=== PATIENT | female | born 1990 | race African-American/Black ===

== ENCOUNTER 2018-01-02 15:11 | Emergency (ER) | payer MEDICAID, OTHER ==
[2018-01-02 15:21] VITALS: BP 104/62
[2018-01-02 15:42] LABS: Basophils # (auto) 0 uL; Basophils % (auto) 0.4 % (0.0-2.0); Eosinophils # (auto) 0 uL; Eosinophils % (auto) 0.5 % (0.0-7.0); Hemoglobin 14.5 g/dL (12.2-16.2); Lymphocytes # (auto) 2.7 uL; Mean Corpuscular Hemoglobin 31.2 pg (28.0-32.0); Mean Corpuscular Hgb Conc. 33.6 g/dL (32.0-36.0); Monocytes % (auto) 9.7 % (0.0-12.0); Neutrophils # (auto) 6.6 uL; Neutrophils % (auto) 63.4 % (37.0-80.0); Nucleated Red Blood Cells % 0.1 %; Platelet Count (auto) 299 10^3/uL (140-450); Red Blood Cells 4.63 10^6/uL (4.0-5.20); Red Cell Distribution Width 13.1 % (11.8-14.3); White Blood Cell 10.3 10^3/uL (4.4-10.8)
[2018-01-02 15:57] LABS: Albumin 3.8 g/dL (3.4-5.0); BUN/Creatinine Ratio 8.3; Calcium 8.4 mg/dL (8.5-10.1)
[2018-01-02 15:59] LABS: Bilirubin, Total 0.7 mg/dL (0.2-1.0); Total Protein 7.8 g/dL (6.4-8.2)
== END 2018-01-02 16:39 | disposition left against medical advice (07) ==
LOC: EDBD 15:11 → ER 15:22
DX: R10.9 Unspecified abdominal pain (principal)
CPT/HCPCS: 36415; 80053; 84702; 85025

== ENCOUNTER 2021-07-30 19:17 | Observation (INO) | payer MEDICAID ==
[~2021-07-30 19:17] MED LIST: PREN-96 PO
[2021-07-30] MEDS ORDERED: DOCU50LI8 PO (19:39)
[2021-07-30] MEDS ORDERED: DOCUSATE SOD 100 MG CAP PO ONE (20:15)
== END 2021-07-30 21:10 | disposition home or self-care (01) ==
LOC: LDRP 19:17
PROVIDERS: ADMIT Obstetrics & Gynecology; ATTEND Obstetrics & Gynecology
DX: O26.893 Other specified pregnancy related conditions, third trimester (principal); K59.00 Constipation, unspecified; E86.0 Dehydration; R11.0 Nausea; R10.9 Unspecified abdominal pain; Z3A.31 31 weeks gestation of pregnancy
CPT/HCPCS: 59025; 81002; 94760; G0378

== ENCOUNTER 2022-04-25 07:12 | Emergency (ER) | payer MEDICAID ==
[~2022-04-25] VITALS: Ht 175.3 cm; Wt 84.0 kg
[~2022-04-25 07:12] MED LIST changes: +DOCU50LI8 PO
[2022-04-25 08:15] LABS: Basophils # (auto) 0 10 ^3/uL (0-0.2); Basophils % (auto) 0.4 % (0.0-2.0); Eosinophils # (auto) 0 10 ^3/uL (0-0.8); Hematocrit 41.9 % (36.0-46.0); Lymphocytes # (auto) 1.5 10 ^3/uL (0.4-5.4); Lymphocytes % (auto) 12.3 % (10.0-50.0); Mean Corpuscular Hemoglobin 30.1 pg (28.0-32.0); Mean Corpuscular Hgb Conc. 33.4 g/dL (32.0-36.0); Mean Corpuscular Volume 90.1 fL (80.0-100.0); Monocytes # (auto) 0.5 10 ^3/uL (0-1.3); Monocytes % (auto) 3.8 % (0.0-12.0); Neutrophils # (auto) 10.1 10 ^3/uL (1.6-8.6); Neutrophils % (auto) 83.5 % (37.0-80.0); Red Blood Cells 4.64 10^6/uL (4.0-5.20); Red Cell Distribution Width 15.3 % (11.8-14.3); White Blood Cell 12.1 10^3/uL (4.4-10.8)
[2022-04-25] MEDS ORDERED: MORPHINE SULFATE 4 MG/ML SYR/VIAL IV ONE (08:30)
[2022-04-25] MEDS ORDERED: ONDANSETRON HCL 4 MG/2 ML VIAL IV ONE (08:30)
[2022-04-25] MEDS ORDERED: SODIUM CHLORIDE 0.9% 1,000 ML IV ONE (08:30)
[2022-04-25 08:42] LABS: Urine Bacteria FEW /hpf (None Seen); Urine Blood Negative /uL (Negative); Urine Hyaline Cast FEW /lpf (0 - 2); Urine Mucus FEW (None Seen); Urine Specific Gravity 1.042 (1.001-1.035); Urine WBC 4 /hpf (0 - 5)
[2022-04-25 09:03] LABS: Albumin 4.1 g/dL (3.4-5.0); Bilirubin, Total 0.2 mg/dL (0.2-1.0); Potassium 3.1 mmol/L (3.5-5.1)
[2022-04-25] MEDS ORDERED: cefTRIAXone 1GM/50ML D5W 50 ML IV ONE (09:15)
[2022-04-25] MEDS ORDERED: HYDROmorphone HCL 2 MG/ML VL/or syr IV ONE (09:30)
[2022-04-25] MEDS ORDERED: CEPH-510 PO (11:25)
[2022-04-25] MEDS ORDERED: ONDA-144 PO (11:25)
[2022-04-25 12:00] VITALS: BP 141/81
[2022-04-26] MEDS ORDERED: ONDA-144 PO (13:36)
[2022-04-26] MEDS ORDERED: PANT40TA2 PO (13:36)
== END 2022-04-25 12:10 | disposition home or self-care (01) ==
LOC: EDBD 07:12 → ER 07:12 → EEVIPCON 07:12 → ER 12:10
DX: R10.84 Generalized abdominal pain (principal); R11.2 Nausea with vomiting, unspecified
CPT/HCPCS: 36415; 74176; 80053; 81001; 81025; 83690; 85025; 96361; 96365; 96375; 99285; J0696; J1170; J2270; J2405; J7030

== ENCOUNTER 2022-04-26 10:58 | Emergency (ER) | payer MEDICAID ==
[~2022-04-26] VITALS: Ht 172.7 cm; Wt 118.0 kg
[~2022-04-26 10:58] MED LIST changes: +CEPH-510 PO; +ONDA-144 PO
[2022-04-26] MEDS ORDERED: MORPHINE SULFATE 4 MG/ML SYR/VIAL IV ONE (11:15)
[2022-04-26] MEDS ORDERED: PROCHLORPERAZINE EDISYLATE 5 MG/ML 2ML VIAL IV ONE (11:15)
[2022-04-26] MEDS ORDERED: PANTOPRAZOLE 40 MG/10 ML VIAL INJ IV ONE (11:15)
[2022-04-26] MEDS ORDERED: SODIUM CHLORIDE 0.9% 1,000 ML IVB ONE (11:15)
[2022-04-26 11:49] LABS: Basophils # (auto) 0 10 ^3/uL (0-0.2); Basophils % (auto) 0.4 % (0.0-2.0); Eosinophils # (auto) 0 10 ^3/uL (0-0.8); Eosinophils % (auto) 0.3 % (0.0-7.0); Hematocrit 41.4 % (36.0-46.0); Hemoglobin 13.9 g/dL (12.2-16.2); Lymphocytes # (auto) 1.7 10 ^3/uL (0.4-5.4); Mean Corpuscular Hemoglobin 30.4 pg (28.0-32.0); Mean Corpuscular Hgb Conc. 33.5 g/dL (32.0-36.0); Mean Corpuscular Volume 90.6 fL (80.0-100.0); Monocytes # (auto) 0.4 10 ^3/uL (0-1.3); Monocytes % (auto) 4.9 % (0.0-12.0); Neutrophils # (auto) 6.5 10 ^3/uL (1.6-8.6); Neutrophils % (auto) 74.4 % (37.0-80.0); Nucleated Red Blood Cells % 0.1 %; Red Blood Cells 4.56 10^6/uL (4.0-5.20); Red Cell Distribution Width 15.3 % (11.8-14.3); White Blood Cell 8.7 10^3/uL (4.4-10.8)
[2022-04-26 12:09] LABS: Albumin 3.9 g/dL (3.4-5.0); Potassium 3.4 mmol/L (3.5-5.1)
[2022-04-26 12:12] LABS: BUN/Creatinine Ratio 8.8
[2022-04-26 12:14] LABS: Bilirubin, Total 0.4 mg/dL (0.2-1.0); Total Protein 7.8 g/dL (6.4-8.2)
[2022-04-26] MEDS ORDERED: PANT40TA2 PO (13:36)
[2022-04-26] MEDS ORDERED: ONDA-144 PO (13:36)
[2022-04-26] MEDS ORDERED: HYDROmorphone HCL 2 MG/ML VL/or syr IV ONE (14:00)
[2022-04-26 14:45] VITALS: BP 122/68
[2022-04-27] MEDS ORDERED: LACT10SO3 PO (15:57)
== END 2022-04-26 14:48 | disposition home or self-care (01) ==
LOC: EDBD 10:58 → ER 10:58
DX: F12.188 Cannabis abuse with other cannabis-induced disorder (principal)
CPT/HCPCS: 36415; 76705; 80053; 83690; 85025; 96361; 96374; 96375; 99285; C9113; J0780; J2270; J7030

== ENCOUNTER 2022-04-27 09:22 | Emergency (ER) | payer MEDICAID ==
[~2022-04-27] VITALS: Ht 172.7 cm; Wt 118.1 kg
[~2022-04-27 09:22] MED LIST changes: +PANT40TA2 PO
[2022-04-27 13:44] VITALS: BP 134/69
[2022-04-27] MEDS ORDERED: DICYCLOMINE HCL 10 MG CAP PO ONE (14:30)
[2022-04-27 15:39] LABS: Urine Bacteria NONE SEEN /hpf (None Seen); Urine Blood Negative /uL (Negative); Urine Mucus MANY (None Seen); Urine Specific Gravity 1.034 (1.001-1.035); Urine WBC 3 /hpf (0 - 5)
[2022-04-27] MEDS ORDERED: LACT10SO3 PO (15:57)
== END 2022-04-27 16:00 | disposition home or self-care (01) ==
LOC: EEVIPCON 09:22 → ER 09:22
DX: R10.84 Generalized abdominal pain (principal); K59.00 Constipation, unspecified; Z79.899 Other long term (current) drug therapy
CPT/HCPCS: 74018; 81001; 99284; J0500

== ENCOUNTER 2022-10-25 12:10 | Emergency (ER) | payer MEDICAID ==
[~2022-10-25] VITALS: Ht 170.2 cm; Wt 119.6 kg
[~2022-10-25 12:10] MED LIST changes: +LACT10SO3 PO
[2022-10-25 12:45] VITALS: BP 128/70; PULSE 80; RESP 18; O2SAT 99
[2022-10-25] MEDS ORDERED: SODIUM CHLORIDE 0.9% 1,000 ML IVB ONE (13:15)
[2022-10-25] MEDS ORDERED: PROCHLORPERAZINE EDISYLATE 5 MG/ML 2ML VIAL IV ONE (13:15)
[2022-10-25] MEDS ORDERED: PANTOPRAZOLE 40 MG/10 ML VIAL INJ IV ONE (13:15)
[2022-10-25 13:38] LABS: Urine Bacteria FEW /hpf (None Seen); Urine Color Light yellow (Yellow); Urine Mucus FEW (None Seen); Urine WBC 1 /hpf (0 - 5)
[2022-10-25 13:39] LABS: Urine Blood Negative /uL (Negative); Urine Protein, UAD Negative (Negative); Urine Specific Gravity 1.032 (1.001-1.035); Urine Urobilinogen Normal (Negative)
[2022-10-25 13:44] LABS: Basophils # (auto) 0 10 ^3/uL (0-0.2); Basophils % (auto) 0.1 % (0.0-2.0); Eosinophils # (auto) 0 10 ^3/uL (0-0.8); Eosinophils % (auto) 0.1 % (0.0-7.0); Hemoglobin 13.9 g/dL (12.2-16.2); Lymphocytes % (auto) 9.8 % (10.0-50.0); Mean Corpuscular Hemoglobin 30.6 pg (28.0-32.0); Mean Corpuscular Hgb Conc. 33.1 g/dL (32.0-36.0); Mean Corpuscular Volume 92.6 fL (80.0-100.0); Monocytes # (auto) 0.5 10 ^3/uL (0-1.3); Neutrophils # (auto) 8.8 10 ^3/uL (1.6-8.6); Nucleated Red Blood Cells % 0.1 %; Red Blood Cells 4.54 10^6/uL (4.0-5.20); Red Cell Distribution Width 14.1 % (11.8-14.3); White Blood Cell 10.3 10^3/uL (4.4-10.8)
[2022-10-25 14:03] LABS: Albumin 4.7 g/dL (3.2-4.8); Alkaline Phosphatase 52 U/L (46-116); Anion Gap 8.4 (5-15); Aspartate Aminotransferase 11 U/L (13-40); BUN/Creatinine Ratio 8.9 (10.0-20.0); Bilirubin, Total 0.4 mg/dL (0.2-1.0); Blood Urea Nitrogen 8 mg/dL (9-23); Calcium 9.4 mg/dL (8.5-10.1); Carbon Dioxide 23.6 mmol/L (20-30); Chloride 105 mmol/L (98-107); Glucose 125 mg/dL (74-106); Potassium 4.1 mmol/L (3.5-5.1); Sodium 137 mmol/L (136-145); Total Protein 7.8 g/dL (5.7-8.2)
[2022-10-25 14:06] LABS: Alanine Aminotransferase < 9 U/L (7-40)
== END 2022-10-25 14:34 | disposition left against medical advice (07) ==
LOC: EEVIPCON 12:10 → ER 12:10
DX: O21.0 Mild hyperemesis gravidarum (principal); R10.2 Pelvic and perineal pain; Z3A.01 Less than 8 weeks gestation of pregnancy
CPT/HCPCS: 36415; 80053; 81001; 81025; 84702; 85025; 96361; 96374; 96375; 99284; C9113; J0780; J7030

== ENCOUNTER 2022-10-26 23:51 | Emergency (ER) | payer MEDICAID ==
[~2022-10-26] VITALS: Ht 172.7 cm; Wt 119.0 kg
[2022-10-27 00:11] VITALS: BP 135/71; PULSE 85; RESP 16; O2SAT 99
[2022-10-27 00:55] LABS: Basophils # (auto) 0 10 ^3/uL (0-0.2); Basophils % (auto) 0.4 % (0.0-2.0); Eosinophils # (auto) 0.1 10 ^3/uL (0-0.8); Eosinophils % (auto) 1.1 % (0.0-7.0); Hematocrit 39.2 % (36.0-46.0); Lymphocytes # (auto) 2.4 10 ^3/uL (0.4-5.4); Lymphocytes % (auto) 33.9 % (10.0-50.0); Mean Corpuscular Hemoglobin 30.5 pg (28.0-32.0); Mean Corpuscular Hgb Conc. 33.1 g/dL (32.0-36.0); Mean Corpuscular Volume 92.3 fL (80.0-100.0); Monocytes # (auto) 0.6 10 ^3/uL (0-1.3); Neutrophils % (auto) 55.6 % (37.0-80.0); Red Blood Cells 4.25 10^6/uL (4.0-5.20); Red Cell Distribution Width 14.3 % (11.8-14.3); White Blood Cell 7.2 10^3/uL (4.4-10.8)
[2022-10-27 01:06] LABS: Urine Bacteria MANY /hpf (None Seen); Urine Blood Negative /uL (Negative); Urine Clarity HAZY (Clear); Urine Color Yellow (Yellow); Urine Hyaline Cast FEW /lpf (0 - 2); Urine Mucus FEW (None Seen); Urine Protein, UAD TRACE (Negative); Urine Specific Gravity 1.033 (1.001-1.035); Urine WBC 18 /hpf (0 - 5)
[2022-10-27 01:16] LABS: Alanine Aminotransferase 10 U/L (7-40); Albumin 4.4 g/dL (3.2-4.8); Alkaline Phosphatase 50 U/L (46-116); Anion Gap 5.5 (5-15); Aspartate Aminotransferase 16 U/L (13-40); BUN/Creatinine Ratio 7.9 (10.0-20.0); Bilirubin, Total 0.3 mg/dL (0.2-1.0); Blood Urea Nitrogen 7 mg/dL (9-23); Calcium 8.9 mg/dL (8.7-10.4); Carbon Dioxide 25.5 mmol/L (20-30); Chloride 105 mmol/L (98-107); Glucose 94 mg/dL (74-106); Potassium 3.5 mmol/L (3.5-5.1); Sodium 136 mmol/L (136-145); Total Protein 7.2 g/dL (5.7-8.2)
== END 2022-10-27 03:15 | disposition left against medical advice (07) ==
LOC: ER 23:51 → EEVIPCON 23:51 → ER 23:55
DX: O21.9 Vomiting of pregnancy, unspecified (principal); R10.2 Pelvic and perineal pain; O26.891 Other specified pregnancy related conditions, first trimester; R30.0 Dysuria; Z3A.01 Less than 8 weeks gestation of pregnancy; Z53.21 Procedure and treatment not carried out due to patient leaving prior to being seen by health care provider
CPT/HCPCS: 36415; 76801; 76817; 80053; 81001; 81025; 84702; 85025; 86900; 86901

== ENCOUNTER 2022-10-29 19:28 | Emergency (ER) | payer MEDICAID ==
[~2022-10-29] VITALS: Ht 172.7 cm; Wt 117.0 kg
[2022-10-29 20:15] LABS: Urine Bacteria FEW /hpf (None Seen); Urine Blood Negative /uL (Negative); Urine Clarity Clear (Clear); Urine Color Yellow (Yellow); Urine Mucus FEW (None Seen); Urine Protein, UAD 1+ (Negative); Urine Specific Gravity 1.036 (1.001-1.035); Urine WBC 1 /hpf (0 - 5)
[2022-10-29] MEDS ORDERED: NITR-87 PO (21:23)
[2022-10-29 21:45] VITALS: BP 130/81; PULSE 85; RESP 16; TEMP 98.5; O2SAT 100
== END 2022-10-29 21:47 | disposition home or self-care (01) ==
LOC: ER 19:28 → EEVIPCON 19:28 → ER 21:47
DX: O23.41 Unspecified infection of urinary tract in pregnancy, first trimester (principal); F15.90 Other stimulant use, unspecified, uncomplicated; Z3A.01 Less than 8 weeks gestation of pregnancy; Z79.899 Other long term (current) drug therapy
CPT/HCPCS: 81001; 81025

== ENCOUNTER 2022-12-24 09:32 | Emergency (ER) | payer MEDICAID ==
[~2022-12-24] VITALS: Ht 172.7 cm; Wt 119.0 kg
[~2022-12-24 09:32] MED LIST changes: +NITR-87 PO
[2022-12-24 10:33] LABS: Basophils # (auto) 0 10 ^3/uL (0-0.2); Basophils % (auto) 0.4 % (0.0-2.0); Eosinophils # (auto) 0 10 ^3/uL (0-0.8); Eosinophils % (auto) 0.5 % (0.0-7.0); Hematocrit 43.8 % (36.0-46.0); Hemoglobin 14.4 g/dL (12.2-16.2); Lymphocytes # (auto) 1.5 10 ^3/uL (0.4-5.4); Lymphocytes % (auto) 18.8 % (10.0-50.0); Mean Corpuscular Hemoglobin 30.4 pg (28.0-32.0); Mean Corpuscular Volume 92.3 fL (80.0-100.0); Monocytes # (auto) 0.5 10 ^3/uL (0-1.3); Monocytes % (auto) 5.9 % (0.0-12.0); Neutrophils # (auto) 5.8 10 ^3/uL (1.6-8.6); Neutrophils % (auto) 74.4 % (37.0-80.0); Red Blood Cells 4.74 10^6/uL (4.0-5.20); Red Cell Distribution Width 13.4 % (11.8-14.3); White Blood Cell 7.8 10^3/uL (4.4-10.8)
[2022-12-24] MEDS ORDERED: ONDANSETRON HCL 4 MG/2 ML VIAL IV ONE ×4 (10:45→20:30)
[2022-12-24 10:52] LABS: Urine Bacteria FEW /hpf (None Seen); Urine Blood Negative /uL (Negative); Urine Clarity HAZY (Clear); Urine Color Yellow (Yellow); Urine Mucus FEW (None Seen); Urine Protein, UAD 1+ (Negative); Urine Specific Gravity 1.026 (1.001-1.035); Urine WBC 1 /hpf (0 - 5); Urine pH 7.5 (5.0-8.0)
[2022-12-24 10:57] LABS: Albumin 4.6 g/dL (3.2-4.8); Alkaline Phosphatase 54 U/L (46-116); Anion Gap 9 (5-15); Aspartate Aminotransferase 15 U/L (13-40); Calcium 9.4 mg/dL (8.7-10.4); Carbon Dioxide 22 mmol/L (20-30); Chloride 104 mmol/L (98-107); Glucose 109 mg/dL (74-106); Potassium 3.7 mmol/L (3.5-5.1)
[2022-12-24 10:58] LABS: Bilirubin, Total 0.7 mg/dL (0.2-1.0); Total Protein 7.6 g/dL (5.7-8.2)
[2022-12-24 11:00] LABS: Alanine Aminotransferase < 9 U/L (7-40); Blood Urea Nitrogen < 5 mg/dL (9-23); Sodium 135 mmol/L (136-145)
[2022-12-24] MEDS ORDERED: PROMETHAZINE HCL 25 MG/ML 1ML IV ONE (12:00)
[2022-12-24 12:43] VITALS: PULSE 79; RESP 16; O2SAT 100
[2022-12-24] MEDS ORDERED: MORPHINE SULFATE INJ 2 MG/ml SYRG IV ONE ×3 (14:00→20:30)
[2022-12-24] MEDS ORDERED: SODIUM CHLORIDE 0.9% 1,000 ML IV ONE (16:45)
[2022-12-24 19:40] VITALS: PULSE 71; RESP 19; TEMP 98.2; O2SAT 96
[2022-12-24 22:00] VITALS: BP 138/81; PULSE 70; RESP 14; O2SAT 98
== END 2022-12-24 22:47 | disposition home or self-care (01) ==
LOC: ER 09:32 → EEVIPCON 09:32 → ER 22:47
DX: O44.02 Complete placenta previa NOS or without hemorrhage, second trimester (principal); R10.2 Pelvic and perineal pain; R10.84 Generalized abdominal pain; Z79.899 Other long term (current) drug therapy; Z3A.14 14 weeks gestation of pregnancy
CPT/HCPCS: 36415; 74176; 76705; 76775; 76805; 80053; 81001; 81025; 84702; 85025; 96374; 96375; 96376; 99285; J2270; J2405; J2550; J7030

== ENCOUNTER → 2022-12-25 | Emergency (ER) | payer MEDICAID ==
[~2022-12-25] VITALS: Ht 172.7 cm; Wt 113.0 kg
[~2022-12-25] MED LIST changes: +MORPHINE SULFATE 4 MG/ML SYR/VIAL IV ONE; +MORPHINE SULFATE INJ 2 MG/ml SYRG IV ONE; +ONDANSETRON HCL 4 MG/2 ML VIAL IV ONE; +SODIUM CHLORIDE 0.9% 2,000 ML IV ONE
[2022-12-25 15:33] LABS: Basophils # (auto) 0 10 ^3/uL (0-0.2); Basophils % (auto) 0.2 % (0.0-2.0); Eosinophils # (auto) 0 10 ^3/uL (0-0.8); Hematocrit 43.1 % (36.0-46.0); Hemoglobin 14.1 g/dL (12.2-16.2); Lymphocytes # (auto) 1.5 10 ^3/uL (0.4-5.4); Lymphocytes % (auto) 8.9 % (10.0-50.0); Mean Corpuscular Hemoglobin 30.2 pg (28.0-32.0); Mean Corpuscular Hgb Conc. 32.8 g/dL (32.0-36.0); Mean Corpuscular Volume 91.9 fL (80.0-100.0); Monocytes # (auto) 0.7 10 ^3/uL (0-1.3); Monocytes % (auto) 4.3 % (0.0-12.0); Neutrophils # (auto) 14.9 10 ^3/uL (1.6-8.6); Neutrophils % (auto) 86.6 % (37.0-80.0); Nucleated Red Blood Cells % 0.1 %; Red Blood Cells 4.69 10^6/uL (4.0-5.20); Red Cell Distribution Width 13.2 % (11.8-14.3); White Blood Cell 17.2 10^3/uL (4.4-10.8)
[2022-12-25 15:54] LABS: Alanine Aminotransferase 12 U/L (7-40); Albumin 4.6 g/dL (3.2-4.8); Alkaline Phosphatase 57 U/L (46-116); Anion Gap 11 (5-15); Aspartate Aminotransferase 14 U/L (13-40); BUN/Creatinine Ratio 7.6 (10.0-20.0); Blood Urea Nitrogen 6 mg/dL (9-23); Calcium 9.7 mg/dL (8.7-10.4); Carbon Dioxide 24 mmol/L (20-30); Chloride 102 mmol/L (98-107); Glucose 124 mg/dL (74-106); Lipase 38 U/L (12-53); Potassium 3.8 mmol/L (3.5-5.1); Sodium 137 mmol/L (136-145)
[2022-12-25 15:55] LABS: Bilirubin, Total 0.6 mg/dL (0.2-1.0); Total Protein 7.3 g/dL (5.7-8.2)
[2022-12-25 16:28] LABS: Urine Bacteria NONE SEEN /hpf (None Seen); Urine Blood Negative /uL (Negative); Urine Clarity HAZY (Clear); Urine Color Yellow (Yellow); Urine Mucus FEW (None Seen); Urine Protein, UAD 1+ (Negative); Urine Specific Gravity 1.034 (1.001-1.035); Urine Urobilinogen Normal (Negative); Urine WBC 3 /hpf (0 - 5)
[2022-12-25 19:51] VITALS: BP 129/84; PULSE 83; RESP 18; TEMP 97.7; O2SAT 100
== END | disposition short-term general hospital (02) ==
LOC: EEVIPCON 14:50 → ER 14:50
DX: O21.0 Mild hyperemesis gravidarum (principal); R10.2 Pelvic and perineal pain; D72.829 Elevated white blood cell count, unspecified; Z79.899 Other long term (current) drug therapy; Z3A.14 14 weeks gestation of pregnancy
CPT/HCPCS: 36415; 76700; 76705; 80053; 81001; 82150; 83615; 83690; 84702; 85025; 87040; 96361; 96374; 96375; 99285; J2270; J2405; J7030

== ENCOUNTER 2024-05-03 08:38 | Emergency (ER) | payer MEDICAID, OTHER ==
[~2024-05-03] VITALS: Ht 172.7 cm; Wt 100.0 kg
[~2024-05-03 08:38] MED LIST changes: -MORPHINE SULFATE 4 MG/ML SYR/VIAL IV ONE; -MORPHINE SULFATE INJ 2 MG/ml SYRG IV ONE; -ONDANSETRON HCL 4 MG/2 ML VIAL IV ONE; -SODIUM CHLORIDE 0.9% 2,000 ML IV ONE
[2024-05-03 09:01] VITALS: PULSE 60; RESP 13; O2SAT 100
[2024-05-03] MEDS: SODIUM CHLORIDE 0.9% 1,000 ML IV ONE ×2 (09:06→13:11)
--- NOTE | 2024-05-03 09:10 | ED.PDOC ---
History of Present Illness HPI Comments 34F BIBA w/ no prior Hx associated to the c/c of N/V/D. Pt reports on her son having the "stomach bug at home earlier this week" and is currently having diffuse ABD pain which started at 0300 this morning. Social Hx of tobacco use, but denies alcohol abd substance use. Denies chills, fever, SOB, CP or no other associated symptom's, modifiers, recent injuries or sick contacts at this time. Chief Complaint: Abdominal Pain Time Seen by MD: 08:55 Reviewed Notes: Nurses Notes, Loan Processing Supervisor Notes, Medications, Allergies Allergies: Coded Allergies: NO KNOWN ALLERGIES (Unverified , 07/25/21) Home Meds Active Scripts Nitrofurantoin Monohydrate Mac (Macrobid) 100 Mg Cap, 1 TAB PO BID for 10 Days, #20 CAP Prov:BETTY ARRINGTON Q ADVANCE SEAL DELIVERY SYSTEM MAINTAINER 10/29/22 Lactulose (Lactulose) 10 Gm/15 Ml Devika, 10 GM PO Q8HP PRN, #240 ML Prov:LATRICIA WILSON PAC 04/27/22 Pantoprazole Sodium Sesquihydr (Protonix) 40 Mg Tab, 40 MG PO DAILY, #30 TAB Prov:CHARLOTTE OSEI MD 04/26/22 Ondansetron (Zofran) 4 Mg Tab, 1 TAB PO Q6HR, #20 TAB Prov:CHARLOTTE OSEI MD 04/26/22 Cephalexin ( Keflex 500) 500 Mg Cap, 1 CAP PO TID for 5 Days, #15 CAP Prov:CHANTELL SPEAR MD 04/25/22 Ondansetron (Zofran) 4 Mg Tab, 4 MG PO DAILY for 7 Days, #7 MG Prov:CHANTELL SPEAR MD 04/25/22 Reported Medications Docusate Sodium (Stool Softener) 50 Mg/5 Ml Liq, 50 MG PO, LIQ 07/30/21 Vit W/ Ferrous Fumara ( One Daily) Daily Tab, 1 TAB PO DAILY, #90 TAB 3 Refills 07/25/21 Information Source: Patient Mode of Arrival: EMS Severity: Moderate Timing: Hours Duration: Since onset, Hours Prehospital treatment: None Past Medical History PAST MEDICAL HISTORY: Denies Surgical History: Denies all surgeries RETAIL SALES PROFESSIONAL History: No Pertinent RETAIL SALES PROFESSIONAL History Family History Family History: Reviewed,noncontributory to illness, Unknown Social History Smoker: Cigarettes Alcohol: Denies ETOH Use Drugs: Denies Drug Use Lives In: Home Constitutional: denies: chills, diaphoresis, fatigue, fever, malaise, sweats, weakness, others EENTM: denies: blurred vision, double vision, ear bleeding, ear discharge, ear drainage, ear pain, ear ringing, eye pain, eye redness, hearing loss, mouth pain, mouth swelling, nasal discharge, nose bleeding, nose congestion, nose pain, photophobia, tearing, throat pain, throat swelling, voice changes, others Respiratory: denies: cough, hemoptysis, orthopnea, SOB at rest, shortness of breath, SOB with excertion, stridor, wheezing, others Cardiovascular: denies: chest pain, dizzy spells, diaphoresis, Dyspnea on exertion, edema, irregular heart beat, left arm pain, lightheadedness, palpit ations, PND, syncope, others Gastrointestinal: reports: abdominal pain, diarrhea, nausea, vomiting; denies: abdomen distended, blood streaked bowels, constipated, dysphagia, difficulty swallowing, hematemesis, melena, poor appetite, poor fluid intake, rectal bleeding, rectal pain, others Genitourinary: denies: abnormal vagina bleeding, burning, dyspareunia, dysuria, flank pain, frequency, hematuria, incontinence, pain, , vagina discharge, urgency, others Neurological: denies: dizziness, fainting, headache, left sided numbness, left sided weakness, numbness, paresthesia, pre-existing deficit, right sided numbness, right sided weakness, seizure, speech problems, tingling, tremors, weakness, others Musculoskeletal: denies: back pain, gout, joint pain, joint swelling, muscle pain, muscle stiffness, neck pain, others Integumetry: denies: bruises, change in color, change in hair/nails, dryness, laceration, lesions, lumps, rash, wounds, others Allergic/Immunocompromised: denies: Difficulty Healing, Frequent Infections, Hives, Itching, others Hematologic/Lymphatic: denies: anemia, blood clots, easy bleeding, easy bruising, swollen glands, others Endocrine: denies: excessive hunger, excessive sweating, excessive thirst, excessive urination, flushing, intolerance to cold, intolerance to heat, unexplained weight gain, unexplained weight loss, others Psychiatric: denies: anxiety, bipolar disorder, depression, hopeless, panic disorder, schizophrenia, sleepless, suicidal, others All Other Systems: Reviewed and Negative Physical Exam Exam Comments Appears Dehydrated Dry Mucus membrane Appears Uncomfortable General Appearance: No Apparent Distress, Normal HEENT: Normal ENT Inspection, Pharynx Normal, TMs Normal Neck: Full Range of Motion, Non-Tender, Normal, Normal Inspection Respiratory: Chest Non-Tender, Lungs Clear, No Accessory Muscle Use, No Respir atory Distress, Normal Breath Sounds Cardiovascular: No Edema, No JVD, No Murmur, No Gallop, Normal Peripheral Pulses, Regular Rate/Rhythm Breast Exam: Deferred Gastrointestinal: No Organomegaly, Non Tender, No Pulsatile Mass, Normal Bowel Sounds, Soft Genitalia: Deferred Pelvic: Deferred Rectal: Deferred Extremities: No calf tenderness, Normal capillary refill, Normal inspection, Normal range of motion, Non-tender, No pedal edema Musculoskeletal : Apperance: Normal Neurologic: Alert, public address system installer II-XII nml as Tested, No Motor Deficits, Normal Affect, Normal Mood, No Sensory Deficits Cerebellar Function: Normal Reflexes: Normal Skin: Dry, Normal Color, Warm Lymphatic: No Adenopathy Was a procedure done? Was a procedure done?: No Differential Dx Considerations may include: Viral gastroenteritis, gastritis, SBO, acute appendicitis X-Ray, Labs, Meds, VS Vital Signs Date Time Temp Pulse Resp B/P (MAP) Pulse Ox O2 Delivery O2 Flow Rate FiO2 05/03/24 13:48 92 12 137/82 05/03/24 13:01 97.8 73 13 137/82 (100) 99 97.8 05/03/24 12:21 97.6 59 15 148/82 (104) 98 97.6 05/03/24 10:01 61 12 159/89 (112) 98 05/03/24 09:01 60 13 100 Room Air* 0 21 05/03/24 08:52 98.3 60 13 127/87 (100) 100 98.3 05/03/24 08:48 97.7 71 22 141/81 (101) 98 Lab Test 05/03/24 13:09 05/03/24 09:03 Range/Units Urine Color Yellow Yellow Urine Clarity Clear Clear Urine pH 5.5 5.0-9.0 Urine Specific [place] 1.048 H 1.001-1.035 Urine Protein 1+ H Negative Urine Ketones Trace Negative Urine Blood Negative Negative /uL Urine Nitrite Negative Negative Urine Bilirubin Negative Negative Urine Urobilinogen Normal Negative mg/dL Urine Leukocyte Esterase Negative Negative /uL Urine RBC 1 0 - 4 /hpf Urine Microscopic WBC < 1 0-5 /HPF Urine Squamous Epithelial Cells Few <5 /hpf Urine Bacteria None seen None Seen /hpf Urine Mucus Few None Seen Urine Glucose Trace Normal mg/dL White Blood Count 14.3 H 4.4-10.8 10^3/uL Red Blood Count 4.86 4.0-5.20 10^6/uL Hemoglobin 14.8 12.2-16.2 g/dL Hematocrit 45.9 36.0-46.0 % Mean Corpuscular Volume 94.4 80.0-100.0 fL Mean Corpuscular Hemoglobin 30.4 28.0-32.0 pg Mean Corpuscular Hemoglobin Concent 32.2 32.0-36.0 g/dL Red Cell Distribution Width 13.5 11.8-14.3 % Platelet Count 263 140-450 10^3/uL Mean Platelet Volume 9.1 6.9-10.8 fL Neutrophils (%) (Auto) 86.5 H 37.0-80.0 % Lymphocytes (%) (Auto) 7.7 L 10.0-50.0 % Monocytes (%) (Auto) 5.3 0.0-12.0 % Eosinophils (%) (Auto) 0.4 0.0-7.0 % Basophils (%) (Auto) 0.1 0.0-2.0 % Neutrophils # (Auto) 12.3 H 1.6-8.6 10 ^3/uL Lymphocytes # (Auto) 1.1 0.4-5.4 10 ^3/uL Monocytes # (Auto) 0.8 0-1.3 10 ^3/uL Eosinophils # (Auto) 0.1 0-0.8 10 ^3/uL Basophils # (Auto) 0 0-0.2 10 ^3/uL Nucleated Red Blood Cells 0.1 % Sodium Level 142 136-145 mmol/L Potassium Level 2.8 L 3.5-5.1 mmol/L Chloride Level 108 H 98-107 mmol/L Carbon Dioxide Level 23 20-31 mmol/L Anion Gap 11 5-15 Blood Urea Nitrogen 12 9-23 mg/dL Creatinine 1.00 0.550-1.02 mg/dL Glomerular Filtration Rate Calc 76 >90 mL/min BUN/Creatinine Ratio 12.0 10.0-20.0 Serum Glucose 163 H 74-106 mg/dL Calcium Level 9.2 8.7-10.4 mg/dL Current Medications Medications (Trade) Dose Ordered Sig/Ludivina Route Start Time Stop Time Status Last Admin Sodium Chloride 1,000 ml @ 1,000 mls/hr Q1H ONCE IV 05/03/24 09:00 05/03/24 09:59 DC 05/03/24 09:06 Ondansetron HCl (Zofran) 4 mg ONCE ONCE IV 05/03/24 09:00 05/03/24 09:01 DC 05/03/24 09:18 Famotidine (Pepcid Injection) 20 mg ONCE ONCE IV 05/03/24 09:00 05/03/24 09:01 DC 05/03/24 09:18 Ketorolac Tromethamine (Toradol Injection) 15 mg ONCE ONCE IV 05/03/24 09:00 05/03/24 09:01 DC 05/03/24 09:18 Metoclopramide HCl (Reglan Injection) 10 mg ONCE ONCE IV 05/03/24 10:30 05/03/24 10:53 DC 05/03/24 10:59 Acetaminophen (Tylenol Tablet) 1,000 mg ONCE ONCE PO 05/03/24 10:30 05/03/24 10:53 DC 05/03/24 11:09 Sodium Chloride 1,000 ml @ 1,000 mls/hr Q1H ONCE IV 05/03/24 12:30 05/03/24 13:29 DC 05/03/24 13:11 Haloperidol Lactate (Haldol) 10 mg ONCE ONCE IM 05/03/24 12:30 05/03/24 12:36 DC 05/03/24 13:11 Potassium Chloride 50 ml @ 25 mls/hr Q2H IV 05/03/24 13:00 05/03/24 20:59 05/03/24 15:40 Morphine Sulfate 4 mg ONCE ONCE IV 05/03/24 13:15 05/03/24 13:16 DC 05/03/24 13:48 Ondansetron HCl (Zofran) 4 mg ONCE ONCE IV 05/03/24 13:45 05/03/24 13:46 DC 05/03/24 13:48 Time of 1ST Reevaluation: 09:25 Reevaluation 1ST: Unchanged Patient Education/Counseling: Diagnosis, Treatment, Prognosis Family Education/Counseling: No Family Present Departure 1 Departure Time of Disposition: 15:56 (Patient presented with abdominal pain that was concerning for possible appendicits, gastritis, cholecystitis, colitis, gastroenteritis, or orther possible surgical emergency. Data: 1. I ordered and reviewed the result of at least 3 labs including a CBC, BMP, and Urinalysis. 2. I independently interpreted the following tests: CT Abdoment and Pelvis is concerning for gastroenteritis .Risk:This patient has a high risk of morbidity due to further diagnostic testing or treatment and may suffer from an acute abdominal process disorder. Fortunately workup reveals gastroenteritis and patient can be safely discharged to home with outpatient follow up.) Impression: Primary Impression: Gastroenteritis Additional Impression: Projectile vomiting with nausea Disposition: HOME / SELF CARE / HOMELESS Condition: Stable Additional Instructions: You likely have gastroenteritis. It is important to stay well hydrated and well rested. This usually resolves within 1 week. If your symptoms worsen or you have any other concerns please return to the ER. e-Prescriptions Ondansetron Odt 4MG Tab (ZOFRAN PO) 4 Mg Tb 4 MG PO QID PRN for 5 Days, #20 TAB ODT TAB-DISSOLVE IN MOUTH, THEN SWALLOW Prov: LUZ MARIA PATEL MD 05/03/24 Discharged With: Self Critical Care Note Critical Care Time?: No Stability Stability form required: No I personally scribed for LUZ MARIA PATEL MD ([email or web address]) on 05/03/24 at 09:10. Electronically submitted by Jaxon Vogt ([email or web address]). LUZ MARIA PATEL MD May 03, 2024 09:10
[2024-05-03 09:13] LABS: Basophils # (auto) 0 10 ^3/uL (0-0.2); Basophils % (auto) 0.1 % (0.0-2.0); Eosinophils # (auto) 0.1 10 ^3/uL (0-0.8); Eosinophils % (auto) 0.4 % (0.0-7.0); Hematocrit 45.9 % (36.0-46.0); Hemoglobin 14.8 g/dL (12.2-16.2); Lymphocytes # (auto) 1.1 10 ^3/uL (0.4-5.4); Lymphocytes % (auto) 7.7 % (10.0-50.0); Mean Corpuscular Hemoglobin 30.4 pg (28.0-32.0); Mean Corpuscular Hgb Conc. 32.2 g/dL (32.0-36.0); Mean Corpuscular Volume 94.4 fL (80.0-100.0); Monocytes # (auto) 0.8 10 ^3/uL (0-1.3); Monocytes % (auto) 5.3 % (0.0-12.0); Neutrophils # (auto) 12.3 10 ^3/uL (1.6-8.6); Neutrophils % (auto) 86.5 % (37.0-80.0); Nucleated Red Blood Cells % 0.1 %; Platelet Count (auto) 263 10^3/uL (140-450); Red Blood Cells 4.86 10^6/uL (4.0-5.20); Red Cell Distribution Width 13.5 % (11.8-14.3); White Blood Cell 14.3 10^3/uL (4.4-10.8)
[2024-05-03] MEDS: ONDANSETRON HCL 4 MG/2 ML VIAL IV ONE ×2 (09:18→13:48)
[2024-05-03] MEDS: FAMOTIDINE (10MG/ML) 2ML VL IV ONE (09:18)
[2024-05-03] MEDS: KETOROLAC TROMETH 30 MG/ML 1ML VIAL IV ONE (09:18)
[2024-05-03 09:24] LABS: Sodium 142 mmol/L (136-145)
[2024-05-03 09:25] LABS: Anion Gap 11 (5-15); Calcium 9.2 mg/dL (8.7-10.4); Carbon Dioxide 23 mmol/L (20-31)
[2024-05-03 09:30] LABS: Blood Urea Nitrogen 12 mg/dL (9-23)
[2024-05-03 09:47] LABS: Chloride 108 mmol/L (98-107); Glucose 163 mg/dL (74-106); Potassium 2.8 mmol/L (3.5-5.1)
[2024-05-03] MEDS: ACETAMINOPHEN IV 1000 MG/100ML (10MG/ML) IV STA (10:30)
[2024-05-03] MEDS: METOCLOPRAMIDE HCL 5MG/ml INJ 2ml VIAL IV ONE (10:59)
[2024-05-03] MEDS: ACETAMINOPHEN 325 MG TAB PO ONE (11:09)
[2024-05-03] MEDS ORDERED: POTASSIUM CHL 20MEQ/100ML 100 ML IV SCH (12:45)
[2024-05-03 13:01] VITALS: TEMP 97.8
[2024-05-03] MEDS: POTASSIUM CHL 20MEQ/50ML 50 ML IV SCH (13:11)
[2024-05-03] MEDS: HALOPERIDOL LACTATE 5 MG/ML INJ VIAL IM ONE (13:11)
[2024-05-03] MEDS: IOHEXOL 300 MG/ML 100ML BOTTLE IJ ONE ×2 (13:39→14:27)
[2024-05-03] MEDS: MORPHINE SULFATE 4 MG/ML SYR/VIAL IV ONE (13:48)
[2024-05-03 14:29] LABS: Urine Bacteria None Seen /hpf (None Seen)
[2024-05-03 14:51] LABS: Urine Blood Negative /uL (Negative); Urine Clarity Clear (Clear); Urine Color Yellow (Yellow); Urine Mucus FEW (None Seen); Urine Protein, UAD 1+ (Negative); Urine Specific Gravity 1.048 (1.001-1.035); Urine Squamous Epithelial Cell FEW /hpf (<5); Urine Urobilinogen Normal (Negative); Urine WBC < 1 /HPF (0-5); Urine pH 5.5 (5.0-9.0)
--- NOTE | 2024-05-03 15:52 | DVH ---
Exam: CT CT AB PEL WITH IV CON ONLY History: abdominal pain TECHNIQUE: Multiple contiguous axial CT images of the abdomen and pelvis were obtained with intraveno us contrast. The images were reformatted to generate coronal and sagittal reconstructions. 100 cc of Omnipaque 300 contrast was injected intravenously. All CT scans at this medical facility are performed using dose modulation techniques as appropriate t o a performed exam including the following:Automated exposure control was utilized; adjustment of the MA and/or KV according to patient size; and use of iterative reconstruction technique. Radiation Dose Information: CT Dose: CTDI volume is 27 mGy. Dose-length product is 1573 mGy*cm Comparison: 12/24/2022 FINDINGS: Theliver, gallbladder, pancreas, kidneys, adrenal glands, and spleen appear within normal limits. There is no evidence of abdominal lymphadenopathy. There is no free fluid or free air. There is a small hiatal hernia. The stomach otherwise grossly appears unremarkable. The small and lar ge bowel loops demonstrate normal caliber. There are few scattered diverticula in the distal colon. A normal appearing appendix is seen in the right lower quadrant abdomen. The abdominal aorta and IVC appear within normal limits. The bladder appears within normal limits the degree of distention. Uterus appears within normal limi ts. There is no evidence of a pelvic mass or lymphadenopathy. There is no free fluid collection. Lung bases are clear. There is no acute osseous abnormality. IMPRESSION: 1. There is no acute process in the abdomen and pelvis. 2. Small hiatal hernia. HS:Y
[2024-05-03 15:55] VITALS: BP 136/76; PULSE 67; RESP 17; O2SAT 99
[2024-05-03] MEDS ORDERED: ZOFR4T PO (15:58)
== END 2024-05-03 17:00 | disposition home or self-care (01) ==
LOC: EDUNIT# 08:38 → EEVIPCON 08:38 → ER 08:38 → EDBD 08:38 → ER 17:00
DX: K44.9 Diaphragmatic hernia without obstruction or gangrene (principal); R11.2 Nausea with vomiting, unspecified; F17.210 Nicotine dependence, cigarettes, uncomplicated; Z79.899 Other long term (current) drug therapy
CPT/HCPCS: 36415; 74177; 80048; 81001; 85025; 96361; 96372; 96374; 96375; 96376; 99285; J1630; J1885; J2270; J2405; J2765; J3480; J3490; J7030; Q9967

== ENCOUNTER 2025-01-08 13:47 | Inpatient (IN) | payer MEDICAID ==
[~2025-01-08] VITALS: Ht 172.7 cm; Wt 130.0 kg
[~2025-01-08 13:47] MED LIST changes: +ZOFR4T PO
--- NOTE | 2025-01-08 14:17 | ED.PDOC ---
HPI Comments This is a 34 year old female presenting to the ED with chief complaint of palpitations. Patient reports that while at work, her heart began racing an hour ago with associated SOB and lightheadedness. Patient relays that she has never experienced these kind of symptoms in the past. Patient denies any chest pain, dizziness, headache, syncope, or N/V. Chief Complaint: Palpitations Time Seen by MD: 14:15 Primary Care Provider: Jamie Reviewed Notes: Nurses Notes, Medications, Allergies Allergies: Coded Allergies: NO KNOWN ALLERGIES (Unverified , 07/25/21) Home Meds Active Scripts Ondansetron Odt 4MG Tab (ZOFRAN PO) 4 Mg Tb, 4 MG PO QID PRN for 5 Days, #20 TAB ODT TAB-DISSOLVE IN MOUTH, THEN SWALLOW Prov:LUZ MARIA PATEL MD 05/03/24 Nitrofurantoin Monohydrate Mac (Macrobid) 100 Mg Cap, 1 TAB PO BID for 10 Days, #20 CAP Prov:BETTY ARRINGTON Q WIRE SPINNER 10/29/22 Lactulose (Lactulose) 10 Gm/15 Ml Devika, 10 GM PO Q8HP PRN, #240 ML Prov:LATRICIA WILSON PAC 04/27/22 Pantoprazole Sodium Sesquihydr (Protonix) 40 Mg Tab, 40 MG PO DAILY, #30 TAB Prov:CHARLOTTE OSEI MD 04/26/22 Ondansetron (Zofran) 4 Mg Tab, 1 TAB PO Q6HR, #20 TAB Prov:CHARLOTTE OSEI MD 04/26/22 Cephalexin ( Keflex 500) 500 Mg Cap, 1 CAP PO TID for 5 Days, #15 CAP Prov:CHANTELL SPEAR MD 04/25/22 Ondansetron (Zofran) 4 Mg Tab, 4 MG PO DAILY for 7 Days, #7 MG Prov:CHANTELL SPEAR MD 04/25/22 Reported Medications Docusate Sodium (Stool Softener) 50 Mg/5 Ml Liq, 50 MG PO, LIQ 07/30/21 Vit W/ Ferrous Fumara ( One Daily) Daily Tab, 1 TAB PO DAILY, #90 TAB 3 Refills 07/25/21 Information Source: Patient Mode of Arrival: Ambulatory Severity: Moderate Timing: Hours Duration: Since onset Prehospital treatment: None Onset: At Rest Cardiac Risk Factors: None PE Risk Factors: None History of: None Associated Signs and Symptoms: SOB Past Medical History PAST MEDICAL HISTORY: Denies Surgical History: Denies all surgeries COIL SHAPER History: No Pertinent COIL SHAPER History Family History Family History: Reviewed,noncontributory to illness, Unknown Social History Smoker: Cigarettes Alcohol: Denies ETOH Use Drugs: Denies Drug Use Lives In: Home Constitutional: denies: chills, diaphoresis, fatigue, fever, malaise, sweats, weakness, others EENTM: denies: blurred vision, double vision, ear bleeding, ear discharge, ear drainage, ear pain, ear ringing, eye pain, eye redness, hearing loss, mouth pain, mouth swelling, nasal discharge, nose bleeding, nose congestion, nose pain, photophobia, tearing, throat pain, throat swelling, voice changes, others Respiratory: reports: shortness of breath; denies: cough, hemoptysis, orthopnea, SOB at rest, SOB with excertion, stridor, wheezing, others Cardiovascular: reports: lightheadedness, palpitations; denies: chest pain, dizzy spells, diaphoresis, Dyspnea on exertion, edema, irregular heart beat, left arm pain, PND, syncope, others Gastrointestinal: denies: abdomen distended, abdominal pain, blood streaked bowels, constipated, diarrhea, dysphagia, difficulty swallowing, hematemesis, melena, nausea, poor appetite, poor fluid intake, rectal bleeding, rectal pain, vomiting, others Genitourinary: denies: abnormal vagina bleeding, burning, dyspareunia, dysuria, flank pain, frequency, hematuria, incontinence, pain, , vagina discharge, urgency, others Neurological: denies: dizziness, fainting, headache, left sided numbness, left sided weakness, numbness, paresthesia, pre-existing deficit, right sided numbness, right sided weakness, seizure, speech problems, tingling, tremors, weakness, others Musculoskeletal: denies: back pain, gout, joint pain, joint swelling, muscle pain, muscle stiffness, neck pain, others Integumetry: denies: bruises, change in color, change in hair/nails, dryness, laceration, lesions, lumps, rash, wounds, others Allergic/Immunocompromised: denies: Difficulty Healing, Frequent Infections, Hives, Itching, others Hematologic/Lymphatic: denies: anemia, blood clots, easy bleeding, easy bruising, swollen glands, others Endocrine: denies: excessive hunger, excessive sweating, excessive thirst, excessive urination, flushing, intolerance to cold, intolerance to heat, unex plained weight gain, unexplained weight loss, others Psychiatric: denies: anxiety, bipolar disorder, depression, hopeless, panic disorder, schizophrenia, sleepless, suicidal, others All Other Systems: Reviewed and Negative Physical Exam General Appearance: No Apparent Distress, Normal HEENT: Normal ENT Inspection, Pharynx Normal, TMs Normal Neck: Full Range of Motion, Non-Tender, Normal, Normal Inspection Respiratory: Chest Non-Tender, Lungs Clear, No Accessory Muscle Use, No Respiratory Distress, Normal Breath Sounds Cardiovascular: No Edema, No JVD, No Murmur, No Gallop, Normal Peripheral Puls es, Tachycardia Breast Exam: Deferred Gastrointestinal: No Organomegaly, Non Tender, No Pulsatile Mass, Normal Bowel Sounds, Soft Genitalia: Deferred Pelvic: Deferred Rectal: Deferred Extremities: No calf tenderness, Normal capillary refill, Normal inspection, Normal range of motion, Non-tender, No pedal edema Musculoskeletal : Apperance: Normal Neurologic: Alert, 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 Was a procedure done?: No CP Differential Dx Differential Diagnosis: A-fib, A-Flutter, Hypoxia, MAT, LA, PAC's Differential Diagnosis: CHF, HTN Essential, HTN Accelerated, HTN Encephalopathy, Medical NonCompliance Differential Diagnosis: Cholelithiasis, Gastritis, Myocardial Infarction, Pericarditis X-Ray, Labs, Meds, VS Vital Signs Date Time Temp Pulse Resp B/P (MAP) Pulse Ox O2 Delivery O2 Flow Rate FiO2 01/08/25 16:36 99 01/08/25 16:00 97.0 108 18 132/91 (105) 98 97.0 01/08/25 14:42 110 01/08/25 14:30 117 12 98 Room Air* 0 21 01/08/25 14:20 97.8 120 20 122/93 (103) 94 97.8 01/08/25 13:55 97.6 162 20 132/101 100 97.6 01/08/25 13:47 147 Lab Test 01/08/25 17:20 01/08/25 15:46 01/08/25 15:17 01/08/25 14:20 Range/Units Troponin I High Sensitivity Pending 5 4 </=34 ng/L Urine Color Light-yellow Yellow Urine Clarity Clear Clear Urine pH 6.0 5.0-9.0 Urine Specific [place] 1.023 1.001-1.035 Urine Protein Negative Negative Urine Ketones Negative Negative Urine Blood 1+ H Negative /uL Urine Nitrite Negative Negative Urine Bilirubin Negative Negative Urine Urobilinogen 2 H Negative mg/dL Urine Leukocyte Esterase Negative Negative /uL Urine RBC 2 0 - 4 /hpf Urine Microscopic WBC 1 0-5 /HPF Urine Squamous Epithelial Cells Few <5 /hpf Urine Bacteria None seen None Seen /hpf Urine Mucus Few None Seen Urine Glucose Normal Normal mg/dL Urine Test Negative Negative White Blood Count 7.6 4.4-10.8 10^3/uL Red Blood Count 4.68 4.0-5.20 10^6/uL Hemoglobin 14.4 12.2-16.2 g/dL Hematocrit 42.7 36.0-46.0 % Mean Corpuscular Volume 91.2 80.0-100.0 fL Mean Corpuscular Hemoglobin 30.8 28.0-32.0 pg Mean Corpuscular Hemoglobin Concent 33.8 32.0-36.0 g/dL Red Cell Distribution Width 13.4 11.8-14.3 % Platelet Count 245 140-450 10^3/uL Mean Platelet Volume 9.3 6.9-10.8 fL Neutrophils (%) (Auto) 59.3 37.0-80.0 % Lymphocytes (%) (Auto) 34.9 10.0-50.0 % Monocytes (%) (Auto) 3.6 0.0-12.0 % Eosinophils (%) (Auto) 1.3 0.0-7.0 % Basophils (%) (Auto) 0.9 0.0-2.0 % Neutrophils # (Auto) 4.5 1.6-8.6 10 ^3/uL Lymphocytes # (Auto) 2.6 0.4-5.4 10 ^3/uL Monocytes # (Auto) 0.3 0-1.3 10 ^3/uL Eosinophils # (Auto) 0.1 0-0.8 10 ^3/uL Basophils # (Auto) 0.1 0-0.2 10 ^3/uL Nucleated Red Blood Cells 0.2 % D-Dimer, Quantitative 0.41 0.0-0.49 mg/L FEU Sodium Level 142 136-145 mmol/L Potassium Level 4.1 3.5-5.1 mmol/L Chloride Level 108 H 98-107 mmol/L Carbon Dioxide Level 24 20-31 mmol/L Anion Gap 10 5-15 Blood Urea Nitrogen 12 9-23 mg/dL Creatinine 0.97 0.550-1.02 mg/dL Glomerular Filtration Rate Calc 79 >90 mL/min BUN/Creatinine Ratio 12.4 10.0-20.0 Serum Glucose 116 H 74-106 mg/dL Calcium Level 9.0 8.7-10.4 mg/dL Current Medications Medications (Trade) Dose Ordered Sig/Ludivina Route Start Time Stop Time Status Last Admin Sodium Chloride 1,000 ml @ 1,000 mls/hr Q1H ONCE IV 01/08/25 14:00 01/08/25 14:59 DC 01/08/25 14:31 Time of 1ST Reevaluation: 15:14 Reevaluation 1ST: Unchanged Patient Education/Counseling: Diagnosis, Treatment Family Education/Counseling: No Family Present SEPSIS Sepsis Screen Date sepsis recognized/suspect: Jan 08, 2025 Time Sepsis recognized/suspect: 1356 Recent Procedure: No On Antibiotic Therapy: No Respiratory Rate >20: No Heart Rate >90: Yes Temp<36 C (96.8 F) or >38.3 C: No SBP <90 or MAP <65 mmHG: No New Acute Mental Status Change: No Is the patient on CPAP, BIPAP,: No Physician Orders Chest Portable (01/08/25 13:56) Troponin-I Hs (01/08/25 16:56) Electrocardigram (01/08/25 16:56) Vital Signs Date Time Temp Pulse Resp B/P (MAP) Pulse Ox O2 Delivery O2 Flow Rate FiO2 01/08/25 16:36 99 01/08/25 16:00 97.0 108 18 132/91 (105) 98 97.0 01/08/25 14:42 110 01/08/25 14:30 117 12 98 Room Air* 0 21 01/08/25 14:20 97.8 120 20 122/93 (103) 94 97.8 01/08/25 13:55 97.6 162 20 132/101 100 97.6 01/08/25 13:47 147 Laboratory Tests Test 01/08/25 14:20 White Blood Count 7.6 10^3/uL (4.4-10.8) Medications Medications Dose Ordered Sig/Ludivina Route Start Time Stop Time Status Last Admin Dose Admin Sodium Chloride 1,000 ml @ 1,000 mls/hr Q1H ONCE IV 01/08/25 14:00 01/08/25 14:59 DC 01/08/25 14:31 Departure 1 Departure Time of Disposition: 17:51 (Patient presented with palpitations that was concerning for possible STEMI, ACS, PE, Pneumonia, Muscle Strain, COPD, Dissection. Data: 1. I ordered and reviewed the result of at least 3 labs including a CBC, BMP, and Troponin. 2. I independently interpreted the following tests: EKG which shows sinus arrhythmia and Chest X-ray which shows benign chest.Risk:This patient has a high risk of morbidity due to further diagnostic testing or treatment and may suffer from an acute cardiac or respiratory disorder. Workup reveals normal EKG and patient should be admitted for further workup and possible expert consultation. ) Impression: Primary Impression: Palpitations Additional Impressions: Acute chest pain Shortness of breath Abnormal EKG Tachycardia Disposition: ADMITTED INPATIENT Admit to: Tele Condition: Guarded Critical Care Note Critical Care Time?: No Stability Stability form required: No Heart Score Heart Score: Heart Score Response (Comments) Value History Slightly Suspicious 0 EKG Repolarization Disturb 1 Age <45 0 Risk Factors No known risk factors 0 Troponin Normal limit 0 Total 1 I personally scribed for LUZ MARIA PATEL MD ([email or web address]) on 01/08/25 at 14:17. Electronically submitted by Nicolas Nunes [email or web address]). LUZ MARIA PATEL MD Jan 08, 2025 14:17
[2025-01-08 14:30] VITALS: PULSE 117; RESP 12; O2SAT 98
[2025-01-08] MEDS: SODIUM CHLORIDE 0.9% 1,000 ML IV ONE (14:31)
[2025-01-08 14:40] LABS: Hematocrit 42.7 % (36.0-46.0); Hemoglobin 14.4 g/dL (12.2-16.2); Mean Corpuscular Hemoglobin 30.8 pg (28.0-32.0); Mean Corpuscular Volume 91.2 fL (80.0-100.0); Nucleated Red Blood Cells % 0.2 %
[2025-01-08 14:46] LABS: Potassium 4.1 mmol/L (3.5-5.1); Sodium 142 mmol/L (136-145)
[2025-01-08 14:47] LABS: Anion Gap 10 (5-15); Calcium 9.0 mg/dL (8.7-10.4); Carbon Dioxide 24 mmol/L (20-31)
--- NOTE | 2025-01-08 14:47 | ECG ---
[facility] Test Date: 2025-01-08 Test Time: 14:42:00 Pat Name: ANIKA BOYLE Department: ED Room: Gender: F Coding Assistant: ER : 1990 Requested By: LUZ MARIA PATEL Order Number: [id number] Reading MD: Tone Lewis Measurements Intervals [place] Rate: 110 P: 64 WI: 160 QRS: 31 QRSD: 83 T: 53 QT: 343 QTc: 465 Interpretive Statements Sinus tachycardia Ventricular bigeminy Right atrial enlargement Electronically Signed On 01-08-2025 18:55:38 PST by Tone Lewis Please click the below link to view image of tracing.
[2025-01-08 14:52] LABS: BUN/Creatinine Ratio 12.4 (10.0-20.0); Blood Urea Nitrogen 12 mg/dL (9-23)
[2025-01-08 14:55] LABS: Chloride 108 mmol/L (98-107); Glucose 116 mg/dL (74-106)
--- NOTE | 2025-01-08 16:45 | ECG ---
[facility] Test Date: 2025-01-08 Test Time: 16:36:17 Pat Name: ANIKA BOYLE Department: ED Room: Gender: F Growth Hacker: ER : 1990 Requested By: LUZ MARIA PATEL Order Number: [id number] Reading MD: Tone Lewis Measurements Intervals [place] Rate: 99 P: 62 NH: 193 QRS: 40 QRSD: 81 T: 0 QT: 283 QTc: 364 Interpretive Statements Sinus rhythm Ventricular bigeminy Right atrial enlargement Nonspecific T abnormalities, lateral leads Baseline wander in lead(s) V6 Electronically Signed On 01-08-2025 18:55:49 PST by Tone Lewis Please click the below link to view image of tracing.
[2025-01-08 16:49] LABS: Urine Protein, UAD Negative (Negative)
--- NOTE | 2025-01-08 18:40 | DVH ---
CHEST RADIOGRAPH Indication: palpitations Technique: Single frontal view of the chest was obtained Comparison: None FINDINGS: Lines and Tubes: None Lungs: No focal consolidation. Pleura: No effusion. No pneumothorax. Cardiomediastinal contours: Unremarkable Bones: No acute osseous abnormality. IMPRESSION: 1. No acute cardiopulmonary disease.
[2025-01-08] MEDS ORDERED: NITROGLYCERIN 0.4 MG SL TAB SL PRN (19:15)
[2025-01-08] MEDS ORDERED: ONDANSETRON HCL 4 MG/2 ML VIAL IV PRN (19:15)
[2025-01-08] MEDS ORDERED: MORPHINE SULFATE INJ 2 MG/ml SYRG IV PRN (19:15)
[2025-01-08] MEDS ORDERED: TEMAZEPAM 15 MG CAP PO PRN (19:15)
[2025-01-08 19:30] VITALS: PULSE 90; RESP 16; O2SAT 96
[2025-01-08 22:52] VITALS: BP 117/85; PULSE 87; RESP 16; TEMP 97.8; O2SAT 100
[2025-01-08 22:55] VITALS: PULSE 87; RESP 16; O2SAT 100
[2025-01-09] VITALS (7 sets, daily range): BP systolic 111–132; BP diastolic 76–92; PULSE 72–101; RESP 17–19; TEMP 97.7–98.2; O2SAT 98–99
--- NOTE | 2025-01-09 00:36 | DVHHP2 ---
History of Present Illness Reason for Visit: Palpitations History of Present Illness 34-year-old female presents for evaluation of palpitations. Patient reports that today while at work she began to experience palpitations with associated lightheadedness and shortness for breath. Denies having days symptoms in the past. Denies chest pain. No other acute complaints reported. Past Medical History Denies Past Surgical History Denies Family History Noncontributory Smoke: No ALCOHOL: none Drugs: None Lives: with Family Review of Systems Review of Systems Review of systems are currently negative otherwise addressed in HPI. Allergies: Coded Allergies: NO KNOWN ALLERGIES (Unverified , 07/25/21) Medications Current Medications Medications Dose Ordered Sig/Ludivina Route Start Time Stop Time Status Last Admin Dose Admin Temazepam 15 mg QHSP PRN PO 01/08/25 19:15 Ondansetron HCl 4 mg Q4HP PRN IV 01/08/25 19:15 Nitroglycerin 0.4 mg Q5MINP PRN SL 01/08/25 19:15 Morphine Sulfate 2 mg Q30M PRN IV 01/08/25 19:15 Exam Vital Signs Vital Signs Date Time Temp Pulse Resp B/P (MAP) Pulse Ox O2 Delivery O2 Flow Rate FiO2 01/08/25 22:00 95 14 133/82 (99) 98 01/08/25 20:00 98.3 98.3 01/08/25 19:30 Room Air* 0 21 Exam Gen: 34-year-old female in mild distress Skin: Warm, dry, normal color and texture, no rash. HEENT: Normocephalic atraumatic, mucous membranes moist and pink. Neck: Cervical and supraclavicular nodes normal without enlargement, trachea is midline, thyroid gland is normal without masses. Pulmonary: Clear to auscultation and percussion bilaterally. Cardiac: Sinus tachycardia Abdomen: Soft, nontender, nondistended, bowel sounds present all 4 quadrants, no guarding, no rigidity, no organomegaly. Extremities: No cyanosis, clubbing, no edema Neuro: Cranial nerves II through XII grossly intact, normal affect and speech, no focal motor deficits. Labs/Xrays ORDERING PHYSICIAN: LUZ MARIA PATEL MD PROCEDURE(s): CXRP - CHEST PORTABLE REASON: palpitations ORDER NUMBER(s): [id number], ACCESSION NUMBER(s): [id number] CHEST RADIOGRAPH Indication: palpitations Technique: Single frontal view of the chest was obtained Comparison: None FINDINGS: Lines and Tubes: None Lungs: No focal consolidation. Pleura: No effusion. No pneumothorax. Cardiomediastinal contours: Unremarkable Bones: No acute osseous abnormality. IMPRESSION: 1. No acute cardiopulmonary disease. Labs Test 01/08/25 17:20 01/08/25 15:46 01/08/25 14:20 Range/Units Troponin I High Sensitivity 11 </=34 ng/L Thyroid Stimulating Hormone (TSH) 0.69 0.55-4.78 uIU/mL Urine Color Light-yellow Yellow Urine Clarity Clear Clear Urine pH 6.0 5.0-9.0 Urine Specific [place] 1.023 1.001-1.035 Urine Protein Negative Negative Urine Ketones Negative Negative Urine Blood 1+ H Negative /uL Urine Nitrite Negative Negative Urine Bilirubin Negative Negative Urine Urobilinogen 2 H Negative mg/dL Urine Leukocyte Esterase Negative Negative /uL Urine RBC 2 0 - 4 /hpf Urine Microscopic WBC 1 0-5 /HPF Urine Squamous Epithelial Cells Few <5 /hpf Urine Bacteria None seen None Seen /hpf Urine Mucus Few None Seen Urine Glucose Normal Normal mg/dL Urine Test Negative Negative White Blood Count 7.6 4.4-10.8 10^3/uL Red Blood Count 4.68 4.0-5.20 10^6/uL Hemoglobin 14.4 12.2-16.2 g/dL Hematocrit 42.7 36.0-46.0 % Mean Corpuscular Volume 91.2 80.0-100.0 fL Mean Corpuscular Hemoglobin 30.8 28.0-32.0 pg Mean Corpuscular Hemoglobin Concent 33.8 32.0-36.0 g/dL Red Cell Distribution Width 13.4 11.8-14.3 % Platelet Count 245 140-450 10^3/uL Mean Platelet Volume 9.3 6.9-10.8 fL Neutrophils (%) (Auto) 59.3 37.0-80.0 % Lymphocytes (%) (Auto) 34.9 10.0-50.0 % Monocytes (%) (Auto) 3.6 0.0-12.0 % Eosinophils (%) (Auto) 1.3 0.0-7.0 % Basophils (%) (Auto) 0.9 0.0-2.0 % Neutrophils # (Auto) 4.5 1.6-8.6 10 ^3/uL Lymphocytes # (Auto) 2.6 0.4-5.4 10 ^3/uL Monocytes # (Auto) 0.3 0-1.3 10 ^3/uL Eosinophils # (Auto) 0.1 0-0.8 10 ^3/uL Basophils # (Auto) 0.1 0-0.2 10 ^3/uL Nucleated Red Blood Cells 0.2 % D-Dimer, Quantitative 0.41 0.0-0.49 mg/L FEU Sodium Level 142 136-145 mmol/L Potassium Level 4.1 3.5-5.1 mmol/L Chloride Level 108 H 98-107 mmol/L Carbon Dioxide Level 24 20-31 mmol/L Anion Gap 10 5-15 Blood Urea Nitrogen 12 9-23 mg/dL Creatinine 0.97 0.550-1.02 mg/dL Glomerular Filtration Rate Calc 79 >90 mL/min BUN/Creatinine Ratio 12.4 10.0-20.0 Serum Glucose 116 H 74-106 mg/dL Calcium Level 9.0 8.7-10.4 mg/dL SEPSIS Sepsis Screen Date sepsis recognized/suspect: Jan 08, 2025 Time Sepsis recognized/suspect: 2110 Recent Procedure: No On Antibiotic Therapy: No Respiratory Rate >20: No Heart Rate >90: Yes Temp<36 C (96.8 F) or >38.3 C: No SBP <90 or MAP <65 mmHG: No New Acute Mental Status Change: No Is the patient on CPAP, BIPAP,: No Physician Orders * Cardiology Consult (01/08/25 19:05) Admit (01/08/25 19:05) Temazepam (Restoril) (01/08/25 19:15) Ondansetron Hcl (Zofran) (01/08/25 19:15) Cardiac Diet-2gna,Lofat,Lochol (01/09/25 Breakfast) Echo 2d Mode Cardiac Dop (01/08/25 19:05) Condition: Fair (01/08/25 19:05) Bedrest With Bathroom Privileg (01/08/25 19:05) Nitroglycerin Sublingual (Ntrostat Subli (01/08/25 19:15) Morphine Sulfate Injection (01/08/25 19:15) Stat Ekg For Chest Pain (01/08/25 19:05) Notify Of Changes From Base (01/08/25 19:05) Channel Turner For 24 Hours (01/08/25 19:05) Emergency Dysrhythmia Protocol (01/08/25 19:05) Rhythm Strips Once Every Shift (01/08/25 19:05) Oxygen By Nasal Cannula (01/08/25 19:05) Hepatitis B Surface Antigen (01/08/25 23:53) Hepatitis C Antibody (01/08/25 23:53) Vital Signs Date Time Temp Pulse Resp B/P (MAP) Pulse Ox O2 Delivery O2 Flow Rate FiO2 01/08/25 22:00 95 14 133/82 (99) 98 01/08/25 20:00 98.3 91 14 140/92 (108) 96 98.3 01/08/25 19:30 90 16 96 Room Air* 0 21 01/08/25 18:00 97 19 134/90 (105) 93 01/08/25 16:36 99 Laboratory Tests Test 01/08/25 14:20 White Blood Count 7.6 10^3/uL (4.4-10.8) Medications Medications Dose Ordered Sig/Ludivina Route Start Time Stop Time Status Last Admin Dose Admin Sodium Chloride 1,000 ml @ 1,000 mls/hr Q1H ONCE IV 01/08/25 14:00 01/08/25 14:59 DC 01/08/25 14:31 1,000 MLS/HR Assessment/Plan Assessment/Plan Assessment Palpitations Plan Admit the patient to telemetry to the hospitalist Cardiology consultation Echocardiogram pending Continue treatment per orders. Plan discussed with: Patient My Orders Orders - ROXANE MCKEONCNCitlali Procedure Category Date Status Time * Cardiology Consult CONS 01/08/25 Transmitted 19:05 Admit ADMIT 01/08/25 Transmitted 19:05 Temazepam (Restoril) PHA 01/08/25 In Process 19:15 Ondansetron Hcl PHA 01/08/25 In Process (Zofran) 19:15 Cardiac DIET 01/09/25 Transmitted Diet-2gna,Lofat,Lochol Breakfast Echo 2d Mode Cardiac US 01/08/25 Logged DOP 19:05 Condition: Fair MARCELO 01/08/25 In Process 19:05 Bedrest With Bathroom [facility] 01/08/25 In Process Privileg 19:05 Nitroglycerin [facility] 01/08/25 In Process Sublingual (Ntrostat 19:15 Morphine Sulfate [facility] 01/08/25 In Process Injection 19:15 Stat Ekg For Chest [facility] 01/08/25 In Process Pain 19:05 Notify Of Changes [facility] 01/08/25 In Process From Base 19:05 Channel Turner For [facility] 01/08/25 In Process 24 Hours 19:05 Emergency Dysrhythmia [facility] 01/08/25 In Process Protocol 19:05 Rhythm Strips Once [facility] 01/08/25 In Process Every Shift 19:05 Oxygen By Nasal RT 01/08/25 Transmitted Cannula 19:05 Hepatitis B Surface LAB 01/08/25 Logged Antigen 23:53 Hepatitis C Antibody LAB 01/08/25 Logged 23:53 Date of Service: Jan 08, 2025 Billing Provider: ROXANE MCKEON Common Visit Codes: [id number] INP/OBS CARE (HIGH) ROXANE MCKEON Jan 09, 2025 00:36
--- NOTE | 2025-01-09 10:37 | DVHINCON2 ---
Date Seen: Jan 09, 2025 Referring Physician DAVID Harrington Reason for Consultation Palpitations History of Present Illness This is a 34-year-old female patient who presents to the emergency room with chief complaint of palpitations. The patient reports that she was at work when suddenly she began to feel palpitations that would not subside. She reports that the palpitations lasted for approximately 1 hour before resolving with rest. She comes to the emergency room for further evaluation. Initial twelve lead electrocardiogram reveals a supraventricular tachycardia. A repeat twelve lead electrocardiogram revealed sinus tachycardia with bigeminy PVCs with questionable delta waves. At the time of assessment, the patient is in normal sinus rhythm on monitoring and evaluation advisor. Serial troponin levels have been negative. The patient denies any cardiac symptoms at time of assessment or overnight. Significant past medical history includes obesity. The patient denies taking any prescribed or fjcy-ewr-zhwvnhf medications. She also denies any excessive caffeine use. Past Medical History Denies any previous medical history Past Surgical History Denies any previous surgeries Family History: Cerebrovascular accident (CVA) G8 MOTHER Diabetes mellitus G8 BROTHER 19 CHILD Hypercholesterolemia G8 FATHER Hypertension G8 MOTHER Prostate carcinoma G8 FATHER Family History Family history reviewed. Social History Patient states she is a social smoker Admits to marijuana use States she uses alcohol socially Allergies: Coded Allergies: NO KNOWN ALLERGIES (Unverified , 07/25/21) Home Meds Active Scripts Ondansetron Odt 4MG Tab (ZOFRAN PO) 4 Mg Tb, 4 MG PO QID PRN for 5 Days, #20 TAB ODT TAB-DISSOLVE IN MOUTH, THEN SWALLOW Prov:LUZ MARIA PATEL MD 05/03/24 Nitrofurantoin Monohydrate Mac (Macrobid) 100 Mg Cap, 1 TAB PO BID for 10 Days, #20 CAP Prov:BETTY ARRINGTON FEATHER STITCHER 10/29/22 Lactulose (Lactulose) 10 Gm/15 Ml Devika, 10 GM PO Q8HP PRN, #240 ML Prov:LATRICIA WILSON PAC 04/27/22 Pantoprazole Sodium Sesquihydr (Protonix) 40 Mg Tab, 40 MG PO DAILY, #30 TAB Prov:CHARLOTTE OSEI MD 04/26/22 Ondansetron (Zofran) 4 Mg Tab, 1 TAB PO Q6HR, #20 TAB Prov:CHARLOTTE OSEI MD 04/26/22 Cephalexin ( Keflex 500) 500 Mg Cap, 1 CAP PO TID for 5 Days, #15 CAP Prov:CHANTELL SPEAR MD 04/25/22 Ondansetron (Zofran) 4 Mg Tab, 4 MG PO DAILY for 7 Days, #7 MG Prov:CHANTELL SPEAR MD 04/25/22 Reported Medications Docusate Sodium (Stool Softener) 50 Mg/5 Ml Liq, 50 MG PO, LIQ 07/30/21 Vit W/ Ferrous Fumara ( One Daily) Daily Tab, 1 TAB PO DAILY, #90 TAB 3 Refills 07/25/21 Home Meds Denies taking any prescribed or iuks-gkv-mfjddjm medications Current Medications Current Medications Medications (Trade) Dose Ordered Sig/Ludivina Route PRN Reason Start Time Stop Time Status Last Admin Temazepam (Restoril) 15 mg QHSP PRN PO FOR INSOMNIA 01/08/25 19:15 Ondansetron HCl (Zofran) 4 mg Q4HP PRN IV NAUSEA / VOMITING 01/08/25 19:15 Nitroglycerin (Ntrostat Sublingual) 0.4 mg Q5MINP PRN SL FOR CHEST PAIN 01/08/25 19:15 Morphine Sulfate 2 mg Q30M PRN IV FOR CHEST PAIN 01/08/25 19:15 Review of Systems Constitutional: No symptom reported Ears, Nose, & Throat: No symptom reported Eyes: No symptom reported Neurological: No symptoms reported Pulmonary/Respiratory: No symptoms reported Cardiovascular: Palpitations Gastrointestinal: No symptom reported Genitourinary: No symptom reported Musculoskeletal: No symptom reported Skin: No symptom reported Psychiatric: No symptom reported Endocrine: No symptom reported Hematologic/Lymphatic: No symptom reported Vital Signs Vital Signs Date Time Temp Pulse Resp B/P (MAP) Pulse Ox O2 Delivery O2 Flow Rate FiO2 01/09/25 08:30 97.8 75 18 111/76 (88) 98 97.8 01/08/25 22:55 Room Air* 0 21 Physical Exam General Appearance: Cooperative. Obese Pulmonary/Respiratory: Clear, bilateral breaths sounds. Cardiovascular/Chest: Regular rate and rhythm. Peripheral Pulses: 2+ Radial (R). 2+ Radial (L). 2+ Pedal (R). 2+ Pedal (L) Abdominal Exam: Normal bowel sounds. Ankle Exam: Negative ankle edema Lower extremities: Negative lower extremity edema Neuro/Mental Status: A/OX4, coherent. Thoughts/Psych: Normal thought pattern. Appropriate mood and affect. Good judgment and insight. Appearance: No acute distress. Skin Exam: Normal inspection. Normal color. Warm and dry. Labs/Diagnostic Data Labs Test 01/09/25 04:36 01/08/25 17:20 01/08/25 15:46 01/08/25 14:20 Range/Units Troponin I High Sensitivity 11 </=34 ng/L Thyroid Stimulating Hormone (TSH) 0.69 0.55-4.78 uIU/mL Urine Color Light-yellow Yellow Urine Clarity Clear Clear Urine pH 6.0 5.0-9.0 Urine Specific [place] 1.023 1.001-1.035 Urine Protein Negative Negative Urine Ketones Negative Negative Urine Blood 1+ H Negative /uL Urine Nitrite Negative Negative Urine Bilirubin Negative Negative Urine Urobilinogen 2 H Negative mg/dL Urine Leukocyte Esterase Negative Negative /uL Urine RBC 2 0 - 4 /hpf Urine Microscopic WBC 1 0-5 /HPF Urine Squamous Epithelial Cells Few <5 /hpf Urine Bacteria None seen None Seen /hpf Urine Mucus Few None Seen Urine Glucose Normal Normal mg/dL Urine Test Negative Negative White Blood Count 7.6 4.4-10.8 10^3/uL Red Blood Count 4.68 4.0-5.20 10^6/uL Hemoglobin 14.4 12.2-16.2 g/dL Hematocrit 42.7 36.0-46.0 % Mean Corpuscular Volume 91.2 80.0-100.0 fL Mean Corpuscular Hemoglobin 30.8 28.0-32.0 pg Mean Corpuscular Hemoglobin Concent 33.8 32.0-36.0 g/dL Red Cell Distribution Width 13.4 11.8-14.3 % Platelet Count 245 140-450 10^3/uL Mean Platelet Volume 9.3 6.9-10.8 fL Neutrophils (%) (Auto) 59.3 37.0-80.0 % Lymphocytes (%) (Auto) 34.9 10.0-50.0 % Monocytes (%) (Auto) 3.6 0.0-12.0 % Eosinophils (%) (Auto) 1.3 0.0-7.0 % Basophils (%) (Auto) 0.9 0.0-2.0 % Neutrophils # (Auto) 4.5 1.6-8.6 10 ^3/uL Lymphocytes # (Auto) 2.6 0.4-5.4 10 ^3/uL Monocytes # (Auto) 0.3 0-1.3 10 ^3/uL Eosinophils # (Auto) 0.1 0-0.8 10 ^3/uL Basophils # (Auto) 0.1 0-0.2 10 ^3/uL Nucleated Red Blood Cells 0.2 % D-Dimer, Quantitative 0.41 0.0-0.49 mg/L FEU Sodium Level 142 136-145 mmol/L Potassium Level 4.1 3.5-5.1 mmol/L Chloride Level 108 H 98-107 mmol/L Carbon Dioxide Level 24 20-31 mmol/L Anion Gap 10 5-15 Blood Urea Nitrogen 12 9-23 mg/dL Creatinine 0.97 0.550-1.02 mg/dL Glomerular Filtration Rate Calc 79 >90 mL/min BUN/Creatinine Ratio 12.4 10.0-20.0 Serum Glucose 116 H 74-106 mg/dL Calcium Level 9.0 8.7-10.4 mg/dL Assessment Supraventricular tachycardia Rule out Clcye-Gfbellrld-Tmxrf syndrome Rule out structural heart disease Morbid obesity Plan/Recommendation We will continue with the following plan/recommendations (Dr. Lewis): Case discussed and reviewed with Dr. Lewis. We will proceed with obtaining a transthoracic echocardiogram to evaluate cardiac function. We will initiate a low-dose beta-kristopher. We will consult EP team to rule out WPW and evaluate for ablation if deemed necessary. Continue with close cardiac surveillance to monitor for any cardiac arrhythmias. Pending laboratory values such as TSH and urine drug screen. Thank you for allowing us to care for this patient. Please call with any questions or concerns. Critical care time spent: 44 minutes This medical document was created using an electronic medical record system with voice recognition software and computerized dictation system. Although this document has been carefully reviewed, there might still be some phonetic and typographical errors. Occasional wrong-word or ``sound-alike substitutions may have occurred due to the inherent limitations of voice recognition software. These areas are purely typographical due to imperfections of the software programs and do not reflect any compromise in the patient's medical care. Please read the chart carefully and recognize, using context, where these s ubstitutions have occurred. Plan discussed with: Patient NYHA Physical activity limitations: NA Date of Service: Jan 09, 2025 Billing Provider: FARAZ GUTIERREZ Cardiology Common Codes: [id number] INP/OBS CARE (High) Cardiology Consultation Codes: [id number] CONSULT <45MIN FARAZ GUTIERERZ Jan 09, 2025 10:37
[2025-01-09 11:15] LABS: Hematocrit 41.5 % (36.0-46.0); Hemoglobin 13.8 g/dL (12.2-16.2); Mean Corpuscular Hemoglobin 30.6 pg (28.0-32.0); Mean Corpuscular Volume 92.1 fL (80.0-100.0); Nucleated Red Blood Cells % 0.2 %
--- NOTE | 2025-01-09 11:17 | DVHPN2 ---
Reviewed: Care Plan, H&P, Labs, Medications, Previous Orders, Radiology Changes from previous H/P or p: No Changes Objective Vitals Vital Signs Date Time Temp Pulse Resp B/P (MAP) Pulse Ox O2 Delivery O2 Flow Rate FiO2 01/09/25 08:30 97.8 75 18 111/76 (88) 98 97.8 01/09/25 08:10 Room Air* 0 21 Intake/Output Intake and Output 01/09/25 07:00 Intake Total 1740 ml Balance 1740 ml Intake Oral 740 ml IV Total 1000 ml # Voids 1 Medications Current Medications Medications Dose Ordered Sig/Ludivina Route Start Time Stop Time Status Last Admin Dose Admin Temazepam 15 mg QHSP PRN PO 01/08/25 19:15 Ondansetron HCl 4 mg Q4HP PRN IV 01/08/25 19:15 Nitroglycerin 0.4 mg Q5MINP PRN SL 01/08/25 19:15 Morphine Sulfate 2 mg Q30M PRN IV 01/08/25 19:15 Laboratory Results Chemistry Test 01/08/25 14:20 01/09/25 04:36 Calcium Level 9.0 mg/dL (8.7-10.4) Pending Magnesium Level Pending Coagulation Test 01/08/25 14:20 D-Dimer, Quantitative 0.41 mg/L FEU (0.0-0.49) Lipid panel Test 01/09/25 04:36 Cholesterol Level Pending HDL Cholesterol Pending Triglycerides Level Pending HgA1c, TSH Test 01/08/25 17:20 Thyroid Stimulating Hormone (TSH) 0.69 uIU/mL (0.55-4.78) Urinalysis Test 01/08/25 15:46 Urine Color Light-yellow (Yellow) Urine Clarity Clear (Clear) Urine pH 6.0 (5.0-9.0) Urine Specific [place] 1.023 (1.001-1.035) Urine Protein Negative (Negative) Urine Ketones Negative (Negative) Urine Blood 1+ /uL (Negative) H Urine Nitrite Negative (Negative) Urine Bilirubin Negative (Negative) Urine Urobilinogen 2 mg/dL (Negative) H Urine Leukocyte Esterase Negative /uL (Negative) Urine RBC 2 /hpf (0 - 4) Urine Microscopic WBC 1 /HPF (0-5) Urine Squamous Epithelial Cells Few /hpf (<5) Urine Bacteria None seen /hpf (None Seen) Urine Mucus Few (None Seen) Urine Glucose Normal mg/dL (Normal) Urine Test Negative (Negative) Labs and/or images reviewed: Labs reviewed by me, Image(s) reviewed by me Assessment/Plan Assessment/Plan Palpitations, rule out cardiac arrhythmia , TSH normal, urine drug screen pending, cardiology consult by Dr. Lewis appreciated troponin negative Rule out structural heart disease Morbid obesity Plan discussed with: Patient Date of Service: Jan 09, 2025 Billing Provider: LUIS DANIEL ABAD MD Common Visit Codes: [id number] INP/OBS CARE(HIGH) LUIS DANIEL ABAD MD Jan 09, 2025 11:17
[2025-01-09 11:37] LABS: Potassium 4.3 mmol/L (3.5-5.1); Sodium 142 mmol/L (136-145)
[2025-01-09 11:38] LABS: Anion Gap 7 (5-15); Carbon Dioxide 27 mmol/L (20-31)
[2025-01-09 11:43] LABS: BUN/Creatinine Ratio 15.9 (10.0-20.0); Blood Urea Nitrogen 13 mg/dL (9-23); Glucose 98 mg/dL (74-106)
[2025-01-09 11:44] LABS: Magnesium 2.0 mg/dL (1.6-2.6)
[2025-01-09 12:06] LABS: Calcium 8.6 mg/dL (8.7-10.4); Chloride 108 mmol/L (98-107)
[2025-01-09 12:38] LABS: Triglycerides 78 mg/dL (< 150)
[2025-01-09 12:40] LABS: Cholesterol 161 mg/dL (< 200); HDL Cholesterol 42 mg/dL (40-59)
[2025-01-09 15:28] LABS: Amphetamine Screen, Urine Neg (NEGATIVE); Barbiturate Scree,Urine Neg (NEGATIVE); Benzodiazephine Screen, Urine Neg (NEGATIVE); Cannabinoid Screen, Urine Pos (NEGATIVE); Cocaine Screen, Urine Neg (NEGATIVE); Opiate Scree,Urine Neg (NEGATIVE); Phencyclidine Screen, Urine Neg (NEGATIVE)
--- NOTE | 2025-01-09 18:41 | DVHSR ---
APPROVED REPORT EXAM: Two-dimensional and M-mode echocardiogram with Doppler and color Doppler. Blood Pressure: 124/92 mmHg INDICATION Palpitations RISK FACTORS Height: 5'8, Weight: 286 DIMENSIONS LVDd 5.4 (3.8-5.7cm) LA (2D) 2.9 (1.9-4.0cm) Aortic Root 2.4 (2.0-3.7cm) LVDs 3.7 (2.5-4.0cm) LA (MM) (1.9-4.0cm) Aortic Cusp Exc 1.9 (1.5-2.0cm) EF (%) 59.0 (55-70%) Rt. Atrium 2.8 (1.9-4.0cm) Asc. Aorta 3.1 cm IVSd 1.1 (0.7-1.1cm) RV (D) (1.8-2.4cm) PWd 1.1 (0.7-1.1cm) Mitral Valve Mitral Mitral Stenosis E wave 0.84m/s MV Mean GR. mmHg A wave 0.72m/s MV Peak GR. mmHg E/A ratio 1.2 2D MVA cm2 DECEL Time 260ms PRESS 1/2 Time ms Aortic Valve Aortic Valve Aortic Stenosis V1 1.21m/s AO Mean GR. 8mmHg V2 1.84m/s AO Peak GR. 13mmHg LVOT Diameter 2.0 (1.8-2.4cm) Doppler JOVANNI 2.06cm2 Pulmonic Valve V2 0.87m/s Tricuspid Valve TR Velocity 2.02m/s RVSP 16mmHg Conclusion Technically good study. Sinus rhythm. Concentric LVH. Left atrial enlargement. Valves are normal. EF of 60% with normal RV function. Dopplers unremarkable. No pericardial effusion masses or vegetations.
[2025-01-09] MEDS ORDERED: METOPROLOL TARTRATE 25 MG TAB PO SCH (22:00)
--- NOTE | 2025-01-10 08:09 | DVHDS2 ---
Discharge Summary Date of Admission Jan 08, 2025 at 19:05 Date of Discharge: Jan 09, 2025 Admitting Diagnosis Palpitations Wounds: none Labs/Diagnostic Data: Laboratory Results Test 01/09/25 13:46 01/09/25 04:36 01/08/25 17:20 01/08/25 15:46 Urine Opiates Screen Neg (NEGATIVE) Urine Fentanyl Screen Neg (NEGATIVE) Urine Barbiturates Screen Neg (NEGATIVE) Urine Phencyclidine Screen Neg (NEGATIVE) Urine Amphetamines Screen Neg (NEGATIVE) Urine Benzodiazepines Screen Neg (NEGATIVE) Urine Cocaine Screen Neg (NEGATIVE) Urine Cannabinoids Screen Pos (NEGATIVE) White Blood Count 8.1 10^3/uL (4.4-10.8) Red Blood Count 4.51 10^6/uL (4.0-5.20) Hemoglobin 13.8 g/dL (12.2-16.2) Hematocrit 41.5 % (36.0-46.0) Mean Corpuscular Volume 92.1 fL (80.0-100.0) Mean Corpuscular Hemoglobin 30.6 pg (28.0-32.0) Mean Corpuscular Hemoglobin Concent 33.2 g/dL (32.0-36.0) Red Cell Distribution Width 13.6 % (11.8-14.3) Platelet Count 219 10^3/uL (140-450) Mean Platelet Volume 9.8 fL (6.9-10.8) Neutrophils (%) (Auto) 47.7 % (37.0-80.0) Lymphocytes (%) (Auto) 42.6 % (10.0-50.0) Monocytes (%) (Auto) 6.2 % (0.0-12.0) Eosinophils (%) (Auto) 2.3 % (0.0-7.0) Basophils (%) (Auto) 1.2 % (0.0-2.0) Neutrophils # (Auto) 3.8 10 ^3/uL (1.6-8.6) Lymphocytes # (Auto) 3.4 10 ^3/uL (0.4-5.4) Monocytes # (Auto) 0.5 10 ^3/uL (0-1.3) Eosinophils # (Auto) 0.2 10 ^3/uL (0-0.8) Basophils # (Auto) 0.1 10 ^3/uL (0-0.2) Nucleated Red Blood Cells 0.2 % Sodium Level 142 mmol/L (136-145) Potassium Level 4.3 mmol/L (3.5-5.1) Chloride Level 108 mmol/L (98-107) Carbon Dioxide Level 27 mmol/L (20-31) Anion Gap 7 (5-15) Blood Urea Nitrogen 13 mg/dL (9-23) Creatinine 0.82 mg/dL (0.550-1.02) Glomerular Filtration Rate Calc 96 mL/min (>90) BUN/Creatinine Ratio 15.9 (10.0-20.0) Serum Glucose 98 mg/dL (74-106) Calcium Level 8.6 mg/dL (8.7-10.4) Magnesium Level 2.0 mg/dL (1.6-2.6) Triglycerides Level 78 mg/dL (< 150) Cholesterol Level 161 mg/dL (< 200) LDL Cholesterol 108 mg/dL (< 100) HDL Cholesterol 42 mg/dL (40-59) Beta HCG, Quantitative 0.5 mIU/mL (1.5-4.2) Troponin I High Sensitivity 11 ng/L (</=34) Thyroid Stimulating Hormone (TSH) 0.69 uIU/mL (0.55-4.78) Urine Color Light-yellow (Yellow) Urine Clarity Clear (Clear) Urine pH 6.0 (5.0-9.0) Urine Specific [place] 1.023 (1.001-1.035) Urine Protein Negative (Negative) Urine Ketones Negative (Negative) Urine Blood 1+ /uL (Negative) Urine Nitrite Negative (Negative) Urine Bilirubin Negative (Negative) Urine Urobilinogen 2 mg/dL (Negative) Urine Leukocyte Esterase Negative /uL (Negative) Urine RBC 2 /hpf (0 - 4) Urine Microscopic WBC 1 /HPF (0-5) Urine Squamous Epithelial Cells Few /hpf (<5) Urine Bacteria None seen /hpf (None Seen) Urine Mucus Few (None Seen) Urine Glucose Normal mg/dL (Normal) Urine Test Negative (Negative) Test 01/08/25 14:20 D-Dimer, Quantitative 0.41 mg/L FEU (0.0-0.49) Other Laboratory Tests 01/09/25 04:36 Brief Hx & Hospital Course: 34-year-old female with a no previous medical history came in for palpitations. TSH normal urine drug screen shows marijuana abuse cardiology consult by Dr. Lewis. Troponin negative EKG normal echocardiogram 60 percent ejection fraction. Placed on metoprolol tartrate. While awaiting further stabilization and workup patient has decided to leave AMA and left AMA. [place] complications explained to the patient by the RN. Consults/Reason for consult Cardiology Dr. Lewis Operations or Procedures Echocardiogram Condition at Discharge: Fair Final Diagnosis/Problems List Palpitations, rule out cardiac arrhythmia , TSH normal, urine drug screen pending, cardiology consult by Dr. Lewis appreciated troponin negative Rule out structural heart disease Morbid obesity Discharge Disposition: AMA Discharge Instruct/Medications Scheduled Cephalexin ( Keflex 500), 1 CAP PO TID Nitrofurantoin Monohydrate Mac (Macrobid), 1 TAB PO BID Ondansetron (Zofran), 4 MG PO DAILY Ondansetron (Zofran), 1 TAB PO Q6HR Pantoprazole Sodium Sesquihydr (Protonix), 40 MG PO DAILY Vit W/ Ferrous Fumara ( One Daily), 1 TAB PO DAILY, (Reported) Scheduled PRN Lactulose (Lactulose), 10 GM PO Q8HP PRN Ondansetron Odt 4MG Tab (Zofran Po), 4 MG PO QID PRN Miscellaneous Medications Docusate Sodium (Stool Softener), 50 MG PO, (Reported) Discharge Statement: "Patient was advised to return to the ER or call 911 if any headaches, dizziness, shortness of breath, chest pain, abdominal pain, bleeding, fevers, or worsening of medical condition. Patient was counseled about treatment plan, medications, possible side effects, patientverbalized understanding. All questions were answered to the best of my ability. This discharge took greater then 30 minutes in planning, reviewing documentation, counseling the patient, and discussing with other team members." ASSESSMENT ASSESSMENT Hospital Course Left AMA Assessment Date of Service: Jan 10, 2025 Billing Provider: LUIS DANIEL ABAD MD Common Visit Codes: 96610-SAF/OBS DISCH DAY >30min LUIS DANIEL ABAD MD Jan 10, 2025 08:09
[2025-01-10 10:52] LABS: Hepatitis B Surface Antigen Negative (Negative)
[2025-01-10 11:15] LABS: Hepatitis C Antibody Negative (Negative)
== END 2025-01-09 18:33 | disposition left against medical advice (07) | DRG 201 ==
LOC: ER 13:47 → EEVIPCON 13:47 → OVERFLOW 19:05 → TELE-EAST 22:52
PROVIDERS: ADMIT Family Medicine; ATTEND Family Medicine
DX: I47.10 Supraventricular tachycardia, unspecified (principal); E66.01 Morbid (severe) obesity due to excess calories; F12.10 Cannabis abuse, uncomplicated; F17.210 Nicotine dependence, cigarettes, uncomplicated; Z53.29 Procedure and treatment not carried out because of patient's decision for other reasons; Z82.3 Family history of stroke; Z83.3 Family history of diabetes mellitus; Z82.49 Family history of ischemic heart disease and other diseases of the circulatory system; Z68.41 Body mass index [BMI] 40.0-44.9, adult
CPT/HCPCS: 36415; 71045; 80048; 80061; 80307; 81001; 81025; 83735; 84443; 84484; 84702; 85025; 85379; 86803; 87340; 93005; 93306; 96360; G0378